=== PATIENT | female | born 2000 | race Caucasian/White ===

== ENCOUNTER 2021-05-08 00:33 | Emergency (ER) | payer MEDICAID, SELFPAY ==
[2021-05-08 00:33] VITALS: BP 119/79; PULSE 143; RESP 16; TEMP 36.7; O2SAT 100; BMI 19.3
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
[2021-05-08 01:00] VITALS: BP 106/85; PULSE 102
[2021-05-08 01:15] VITALS: PULSE 110; O2SAT 99
--- NOTE | 2021-05-08 01:22 | PC.NURSE ---
PT NEUROCHECK WNL. MEDICATIONS GIVEN FOR PAIN. NADN. FLORES.
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
[2021-05-08 03:37] VITALS: BP 119/82; PULSE 115; RESP 16; TEMP 37.1; O2SAT 98
== END 2021-05-08 03:39 | disposition home or self-care (01) ==
PROVIDERS: Emergency Provider Student in an Organized Health Care Education/Training Program; PCP Family Medicine
DX: S06.0X0A Concussion without loss of consciousness, initial encounter (principal); Y04.0XXA Assault by unarmed brawl or fight, initial encounter; Y92.89 Other specified places as the place of occurrence of the external cause; F10.929 Alcohol use, unspecified with intoxication, unspecified
CPT/HCPCS: 99283